=== PATIENT | male | born 1955 | race Caucasian/White ===

== ENCOUNTER 2019-02-05 04:53 | Inpatient (IN) ==
--- NOTE | 2019-01-06 20:04 | PAT Medication Instructions ---
Medication Instructions Date of Service January 06, 2019 Home Medications pantoprazole 40 mg PO QAM Take morning of surgery With a small sip of water, OTHERWISE NOTHING TO EAT OR DRINK AFTER MIDNIGHT: pantoprazole 40 mg PO QAM Other Notes If you have any questions please call us at [phone] or [phone] or [phone] or [phone]
--- NOTE | 2019-01-07 11:29 | Anesthesiology Consultation ---
Date of Service January 07, 2019 Assessment & Plan (1) Encounter for pre-operative examination: Chart Review Chart Review: Acceptable Risk for Surgery and Patient seen in Pre Admission Testing Consults Requested none Teaching & Discussion Pre-Anesthesia Teaching/Discussion Notes: Instructed NPO after midnight before surgery,except medications with 15 cc of water. Medication instructions provided according to the PAT guidelines. History Surgery Operation Date: 02/05/19 08:50 Proposed Procedures p Left Total Knee Arthroplasty - Naman Medina MD Height/Weight Height: 5 ft 10 in Weight: 109.5 kg Allergies Allergy/AdvReac Type Severity Reaction Status Date / Time No Known Allergies Allergy Verified 01/01/19 11:48 Medications Home Medications Medication Instructions Recorded Confirmed Last Taken pantoprazole 40 mg PO QAM 01/01/19 01/01/19 01/01/19 Past Medical History Medical History GERD (gastroesophageal reflux disease) controlled History of herniated intervertebral disc lumbar (rare LBP with strenuous activity) History of kidney stones Obesity Osteoarthritis Exercise / Class Metabolic Activity III < 4 Walking/Shop/Light housework Past Family History Family History Father Family history of lymphoma Past Surgical History Surgical History History of arthroscopy of left knee History of colonoscopy History of tonsillectomy History of total right knee replacement History of vasectomy Hx of arthroscopy of right knee Past Anesthesia History No Hx of Anesthesia Complications and No Family Hx of Anesthesia Complications History of PONV No Hx of PONV and No Hx of Motion Sickness Social History Smoking Status: Never smoker Do You Dip or Chew Tobacco: No Hx Alcohol Use: Yes Alcohol type: beer alcohol intake frequency: holidays/special occasions only Hx Substance Use: No substance use type: does not use Review of Systems Reflux controlled. Patient denies chest pain, shortness of breath, cough, whe ezing, palpitations. Physical Exam Vital Signs Last Vital Signs Temp 36.6 C 01/07/19 11:26 Pulse 58 L 01/07/19 11:26 Resp 18 01/07/19 11:26 BP 145/88 H 01/07/19 11:26 Pulse Ox 96 01/07/19 11:26 Patient advised to followup with PCP regarding elevated BP. PHYSICAL Full neck and c-spine range of motion. Full TMJ range of motion. TMD 3 finger breaths Mallampati Score 2 Dentition: intact, upper front right implant Lungs: clear throughout to auscultation Cardiac: regular rate and rhythm, no murmurs noted Spine: normal Carotid arteries: negative bruit Extremities: no edema Trimmed garcia Testing Laboratory Results 01/07/19 11:42 01/07/19 11:42 PT 11.4 Seconds (9.0-12.0) 01/07/19 11:42 INR 1.1 (0.9-1.1) 01/07/19 11:42 APTT 25.6 Seconds (21.0-31.0) 01/07/19 11:42 Hemoglobin A1c 6.1 % (4.5-5.6) H 01/07/19 11:42 Urine Color Yellow 01/07/19 Unknown Urine Appearance Clear (Clear) 01/07/19 Unknown Urine pH 5.5 (4.5-7.5) 01/07/19 Unknown Ur Specific [place] 1.022 (1.000-1.030) 01/07/19 Unknown Urine Protein Negative (Negative) 01/07/19 Unknown Urine Glucose (UA) Negative (Negative) 01/07/19 Unknown Urine Ketones Negative (Negative) 01/07/19 Unknown Urine Nitrite Negative (Negative) 01/07/19 Unknown Ur Leukocyte Esterase Negative (Negative) 01/07/19 Unknown Blood Type O Positive 01/07/19 11:42 Antibody Screen NEGATIVE 01/07/19 11:42 Electrocardiogram Date: 01/07/19 Findings: + SB @ (55) Chest X-Ray Date: 01/07/19 XR chest Pre-admission PA/Lat CLINICAL HISTORY: 63 years-old Male presenting with preoperative assessment. TECHNIQUE: PA and lateral views of the chest were obtained. COMPARISON: 01/09/2018. FINDINGS: Cardiomediastinal silhouette normal. Lungs and pleural spaces clear. Degenerative changes of the thoracic spine. Upper abdomen normal. IMPRESSION: 1. No acute cardiopulmonary disease.
--- NOTE | 2019-01-07 12:14 | XRay Report ---
XR chest Pre-admission PA/Lat CLINICAL HISTORY: 63 years-old Male presenting with preoperative assessment. TECHNIQUE: PA and lateral views of the chest were obtained. COMPARISON: 01/09/2018. FINDINGS: Cardiomediastinal silhouette normal. Lungs and pleural spaces clear. Degenerative changes of the thor acic spine. Upper abdomen normal. IMPRESSION: 1. No acute cardiopulmonary disease. Electronically signed by: Iván Aponte M.D. 01/07/2019 12:13 PM
[2019-01-07 12:24] LABS: Basophils # (auto) 0.04 K/uL (0-0.2); Basophils % (auto) 0.9 %; Eosinophils # (auto) 0.09 K/uL (0-0.5); Hematocrit (blood only) 41.3 % (42-52); Hemoglobin 13.5 g/dL (14.0-18.0); Lymphocytes # (auto) 1.01 K/uL (1.2-3.4); Lymphocytes % (auto) 22.9 %; Mean Corpuscular Hemoglobin 30.3 pg (25-34); Mean Corpuscular Hgb Conc 32.7 g/dL (32-36); Mean Corpuscular Volume 92.8 fL (80-100); Mean Platelet Volume 11.6 fL (7.4-10.4); Monocytes # (auto) 0.41 K/uL (0.11-0.59); Monocytes % (auto) 9.3 %; Neutrophils # (auto) 2.87 K/uL (1.4-6.5); Neutrophils % (auto) 64.9 %; Platelet Count 226 K/uL (130-400); RDW Coefficient of Variation 13.5 % (11.5-14.5); Red Blood Count 4.45 M/uL (4.7-6.1); White Blood Count 4.42 K/uL (4.8-10.8)
[2019-01-07 12:28] LABS: Albumin Level 3.7 gm/dl (3.4-5.0); BUN Creatinine Ratio 10.9 (10-20); Calcium 8.9 mg/dl (8.5-10.1); Creatinine Clr Calc Pharmacy 99.9 ml/min; Est GFR (Non-African American) 85.4; Potassium 4.3 mmol/L (3.5-5.1)
[2019-01-07 12:38] LABS: Appearance Urine Clear (Clear); Bilirubin Urine Negative (Negative); Blood Urine Negative (Negative); Color Urine Yellow; Glucose Urine UA Negative (Negative); Ketones Urine Negative (Negative); Leukocyte Esterase Urine Negative (Negative); Nitrite Urine Negative (Negative); Protein Urine Negative (Negative); Specific Gravity Urine 1.022 (1.000-1.030); Urobilinogen Urine Negative (Negative); pH Urine 5.5 (4.5-7.5)
[2019-01-07 12:42] LABS: Estimated Average Glucose 128 mg/dl; Hemoglobin A1C 6.1 % (4.5-5.6)
[2019-01-07 12:43] LABS: INR 1.1 (0.9-1.1); Partial Thromboplastin Ratio 0.9; Partial Thromboplastin Time 25.6 Seconds (21.0-31.0); Prothrombin Time 11.4 Seconds (9.0-12.0)
--- NOTE | 2019-02-04 10:17 | History and Physical Report ---
DATE OF ADMISSION: 02/05/2019 CHIEF COMPLAINT: Chronic left knee pain. HISTORY OF PRESENT ILLNESS: This is a 63-year-old male patient of Dr. Medina'ahsan complaining of chronic left knee pain, longstanding, now progressively getting worse. The patient has failed conservative treatment including intra-articular injections, anti-inflammatories and the use of a cane. The patient has been diagnosed with end-stage osteoarthritis per clinical and radiographic exams. The patient has increased pain with weightbearing activities and his pain does interfere with his activities of daily living. The patient wished to proceed with a left total knee arthroplasty. PAST MEDICAL HISTORY: Osteoarthritis, acid reflux, kidney stones. SOCIAL HISTORY: Nonsmoker, nondrinker. PAST SURGICAL HISTORY: Right knee replacement and dental surgery. FAMILY HISTORY: Noncontributory. REVIEW OF SYSTEMS: Chronic left knee pain and instability. Otherwise, denies any shortness of breath, chest pain, nausea, vomiting or any other joint complaints. FAMILY HISTORY: Noncontributory. MEDICATIONS: Pantoprazole 40 mg daily. ALLERGIES: No known drug allergies. PHYSICAL EXAMINATION: GENERAL: Well-developed, well-nourished 63-year-old male in no acute distress. He is alert and oriented x3 and pleasant. HEENT: Normocephalic, atraumatic. Extraocular motions are intact. Pupils are equal and reactive to light. HEART: Regular rate and rhythm, no murmurs. LUNGS: Clear. ABDOMEN: Soft, nontender, bowel sounds present. EXTREMITIES: Left knee reveals a mild effusion. He has a limited range of motion of negative 5-125. He has a varus deformity with medial joint line tenderness. He has 5/5 strength with pain. NEUROLOGIC: Neurovascularly, he is intact in his left lower extremity. DIAGNOSES: Left knee end-stage osteoarthritis, acid reflux, and a history of kidney stones. PLAN: The patient was advised of his diagnosis. Indications, risks, benefits, postop course have all been reviewed. The patient wished to proceed with a left total knee arthroplasty. Necessary consent forms, preoperative testing and clearances will be obtained.
[2019-02-05] MEDS ORDERED: TRANEXAMIC ACID 1,000 MG **IV Pre-op IV SCH (06:00)
[2019-02-05] MEDS ORDERED: FAMOTIDINE 20 MG TAB PO SCH (06:00)
[2019-02-05] MEDS ORDERED: ROPIVACAINE 0.5% HCL/PF 150 MG, BUPIVACAINE 0.5% MPF 30 ML, EPINEPHrine 30MG/30ML (OR U... INSTIL SCH (06:00)
[2019-02-05] MEDS ORDERED: dexAMETHasone 4 MG TAB PO SCH (06:00)
[2019-02-05] MEDS ORDERED: ACETAMINOPHEN 500 MG TAB PO SCH (06:00)
[2019-02-05] MEDS ORDERED: CEFAZOLIN 2000MG 2,000 MG/15 ML SYR IV SCH (06:00)
[2019-02-05] MEDS ORDERED: METOCLOPRAMIDE HCL 10 MG TABLET PO SCH (06:00)
[2019-02-05] MEDS ORDERED: CeleBREX 200 MG CAP PO SCH (06:00)
[2019-02-05] MEDS ORDERED: GABAPENTIN 600 MG DOSE PO SCH (06:00)
[2019-02-05] MEDS ORDERED: LR 500ML BOLUS, THEN 15ML/HR IV SCH (06:00)
[2019-02-05] MEDS ORDERED: ROPIVACAINE 0.5% 5 MG/ML 30 ML VIAL ONE (06:23)
[2019-02-05] MEDS ORDERED: BUPIVACAINE 0.5 % 5 MG/1 ML PF 10ML VIAL ONE (06:23)
[2019-02-05] MEDS ORDERED: MIDAZOLAM HCL 1 MG/ML 2ML VIAL ONE (06:27)
[2019-02-05] MEDS ORDERED: fentaNYL citrate 100 MCG/2 ML VIAL ONE (06:28)
[2019-02-05] MEDS ORDERED: TRANEXAMIC ACID 1,000 MG **IV Intra-op IV SCH (06:30)
[2019-02-05] MEDS ORDERED: ONDANSETRON INJ 2 MG/ML 2 ML VIAL ONE (06:30)
[2019-02-05] MEDS ORDERED: PROPOFOL IV EMULSION 10 MG/ML 20 ML VIAL IV ONE (06:30)
[2019-02-05] MEDS ORDERED: LIDOCAINE HCL 2% 2 ML VIAL/AMP(20MG/ML) INFIL ONE (06:30)
--- NOTE | 2019-02-05 07:00 | History & Physical Bridge Note ---
Date of Service February 05, 2019 History & Physical Bridge Note I have examined the patient, reviewed the History & Physical and in the interval since the performance of the History & Physical I have noted the following changes of clinical significance: no changes noted
[2019-02-05] MEDS ORDERED: ORTHO JOINT ANESTHETIC ONE (07:04)
[2019-02-05] MEDS ORDERED: BACITRACIN INJ 50,000 UNIT VIAL ONE (07:04)
[2019-02-05] MEDS ORDERED: ATROPINE SULFATE 0.1 MG/ML 10ML SYR IV PRN (07:31)
[2019-02-05] MEDS ORDERED: ePHEDrine sulfate 50 MG/ML AMP IV PRN (07:31)
--- NOTE | 2019-02-05 08:50 | Post Operative Brief Note ---
Immediate Post Op Note v1 Date of Surgery February 05, 2019 Pre & Post Diagnosis Operation Date: 02/05/19 07:00 Pre-Op Diagnosis: Left knee end-stage osteoarthritis Post-Op Diagnosis: Left knee end-stage osteoarthritis I identified the patient and participated in the time-out.: Yes Procedure Operation Date: 02/05/19 07:00 Actual Procedures p Left Total Knee Arthroplasty(Left) - Naman Medina MD Surgeon Naman Medina MD Aviation Operations Specialist Roland HOLDER Estimated Blood Loss 5 Findings Consistent with Post-Op Diagnosis Specimens Bone cuts Drains Hemovac Drain Anesthesia Type MAC Spinal Regional Disposition Accompanied Patient To Recovery: No Disposition: Recovery Room Overlapping Procedure I was present for: the critical portions of procedure.
--- NOTE | 2019-02-05 09:52 | XRay Report ---
XR knee LT 2V routine CLINICAL HISTORY: Surgical Post Op COMPARISON: None. DISCUSSION: Anatomic alignment posttotal left knee arthroplasty. Good contact between prosthetic and underlying bone. Expected soft tissue post surgical changes are present. IMPRESSION: Anatomic alignment posttotal left knee arthroplasty. The above report was generated using voice recognition software. It may contain grammatical, syntax or spelling errors. Electronically signed by: Anderson Calvillo M.D. 02/05/2019 9:51 AM
--- NOTE | 2019-02-05 10:40 | Anesthesiology Progress Note ---
Date of Service February 05, 2019 Anesthesia Post Procedure Vital Signs Vital Signs: Temp Pulse Pulse Resp BP Pulse Ox 02/05/19 10:15 59 L 15 118/86 95 02/05/19 10:05 65 18 123/83 94 02/05/19 09:55 64 15 120/91 96 02/05/19 09:45 36.6 C 66 17 129/86 94 02/05/19 09:35 68 18 131/86 94 02/05/19 09:25 75 18 141/85 H 96 02/05/19 09:15 36.3 C L 85 16 130/85 99 02/05/19 05:46 36.6 C 58 L 18 147/84 H 97 Pain Intensity Left Knee: Pain Intensity: 3 Transfer of Care Handoff Completed per policy Notes Mental Status: alert / awake / arousable and participated in evaluation Patient Amnestic to Procedure: Yes Nausea / Vomiting: adequately controlled Pain: adequately controlled Airway Patency, RR, SpO2: stable & adequate BP & HR: stable & adequate Hydration State: stable & adequate Neuraxial Anesthesia: was administered and sensory block is resolving Anesthetic Complications: no major complications apparent
[2019-02-05] MEDS ORDERED: bisacodyL 10 MG SUPP PR PRN (10:56)
[2019-02-05] MEDS ORDERED: HYDROmorphone INJ 0.5 MG/0.5 ML SYR IV PRN (10:56)
[2019-02-05] MEDS ORDERED: ONDANSETRON INJ 2 MG/ML 2 ML VIAL IV PRN (10:56)
[2019-02-05] MEDS ORDERED: NALOXONE HCL 0.4 MG/1 ML VIAL/CARP IV PRN (10:56)
[2019-02-05] MEDS ORDERED: MAGNESIUM HYDROXIDE SUSP 30 ML UDC PO PRN (10:56)
--- NOTE | 2019-02-05 11:16 | Consultation ---
Date of Consultation February 05, 2019 Assessment & Plan (1) Status post left knee replacement: Post op day# 0 S/P L TKA by Dr Medina EBL#5ml -pain management per ortho -wound management per ortho -PT/OT as appropriate -DVT prophylaxis per ortho - aspirin 81mg BID, SCDs -incentive spirometry -monitor H&H for acute blood loss anemia. Pre-op Hgb: 13.5 (2) GERD (gastroesophageal reflux disease): -Continue PPI DVT Prophylaxis -SCDs and ASA 81 mg BID per ortho Disposition per primary team Follows with Dr Crareon for routine care Pt was seen and care coordinated with Dr Sanchez. See addendum Supervising Physician Co-Signing Physician Notes I have seen and examined the patient and have discussed the case with the provider above. I agree with the assessment and plan as stated. 63 yo M s/p L knee arthoplasty today. Doing well post-operatively. Tolerating PO. Denies pain at this time. Heart and lung exam was unremarkable. Patient is not in any distress. Cont plan as above and per Ortho. Thank you for this consultation. DO Daniel [facility] Hospitalist History of Present Illness Reason for Consultation: Post op medical management Attending Physician: Naman Medina MD History of Present Illness Pt is 63 y/o M with PMH GERD seen in medical consultation for post op medical management s/p L TKA today by Dr Medina. Post op pt reports still having leg numbness and denies any pain currently. Denies nausea, vomiting. Denies fever/chills, diaphoresis, SHANKS, dizziness, CP, SOB, palpitations, cough, sore throat, choking, abdominal pain, extremity edema, rashes, urinary symptoms. Allergies Allergy/AdvReac Type Severity Reaction Status Date / Time No Known Allergies Allergy Verified 02/05/19 05:45 Home Medications Home Medications Medication Instructions Recorded Confirmed Type pantoprazole [Protonix] 40 mg PO QAM 01/01/19 01/01/19 History Patient History Medical History GERD (gastroesophageal reflux disease) (Chronic) controlled Osteoarthritis (Chronic) Obesity (Chronic) History of herniated intervertebral disc (Chronic) lumbar (rare LBP with strenuous activity) History of kidney stones (Chronic) Surgical History History of tonsillectomy (Chronic) History of total right knee replacement (Chronic) Hx of arthroscopy of right knee (Chronic) History of arthroscopy of left knee (Chronic) History of vasectomy (Chronic) History of colonoscopy (Chronic) Family History Father Family history of lymphoma Mother Hypertension Social History Preferred Language: [place] Communication Ability: Effective Barrel Bung Remover And Dumper Required: No Beliefs That Will Affect Care: None marital status: Current Living Situation: Spouse Other Information That Helps Us Care for You: No Feels Safe at Home: Yes Smoking Status: Never smoker Do You Dip or Chew Tobacco: No ; Second Hand Exposure: No ; Hx Alcohol Use: Yes Alcohol type: beer Alcohol Intake Frequency: Rarely Hx Substance Use: No Review of Systems Review of Systems: All systems reviewed & are unremarkable except as noted in HPI & below Physical Exam Physical Exam: General: no distress, WDWN Head: normocephalic, atraumatic Eyes: conjunctiva non-injected, anicteric ENT: normal inspection external ears, nose, mucous membranes moist Neck: supple, trachea midline Lungs: clear, no respiratory distress, no wheezing/rhonchi/rales CV: RRR, no murmur, no pretibial edema Abd: normal BS, soft, non-tender Ext: no calf tenderness; left leg: +ladi wrap and dressing in place, limited wiggling toes at this time, distal pulses palpable Neuro: A&O x 3, no focal deficits noted, normal affect Skin: warm, dry Results & Data Vital Signs (Past 12 Hours) Vital Signs Temp Pulse Pulse Resp BP Pulse Ox 02/05/19 10:15 59 L 15 118/86 95 02/05/19 10:05 65 18 123/83 94 02/05/19 09:55 64 15 120/91 96 02/05/19 09:45 36.6 C 66 17 129/86 94 02/05/19 09:35 68 18 131/86 94 02/05/19 09:25 75 18 141/85 H 96 02/05/19 09:15 36.3 C L 85 16 130/85 99 02/05/19 05:46 36.6 C 58 L 18 147/84 H 97
--- NOTE | 2019-02-05 11:28 | Operative Report ---
Post Operative Report Pre & Post Diagnosis Operation Date: 02/05/19 07:00 Pre-Op Diagnosis: Left knee end-stage osteoarthritis Post-Op Diagnosis: Left knee end-stage osteoarthritis I identified the patient and participated in the time-out.: Yes Procedure Operation Date: 02/05/19 07:00 Actual Procedures p Left Total Knee Arthroplasty(Left) - Naman Medina MD Surgeon Naman Medina MD Skip Hoist Operator Roland HOLDER Estimated Blood Loss 5 Findings Consistent with Post-Op Diagnosis Specimens Bone cuts Drains 2 Hemovac Anesthesia Type MAC Spinal Regional Complications none Disposition Accompanied Patient To Recovery: No Disposition: Recovery Room Indications 63-year-old male with chronic progressive osteoarthritis in his left knee failed conservative management. X-rays demonstrate [id number] medial compartment he also has moderately severe osteoarthritis is patella femoral joint with large osteophytes. Is absent knees had total knee replacement in the past with good success. Description of Procedure Patient taken to the operating room the size under spinal MAC regional anesthesia. Patient was placed supine on the operating table. A pneumatic tourniquet was placed about the left upper thigh. The left lower extremity was prepped and draped in sterile fashion. Knee exam demonstrated 15 degree flexion contracture with flexion 125 degrees varus knee. The leg was elevated exsanguinated with an Esmarch bandage and pneumatic tourniquet was raised to 325 millimeters of mercury. Skin incised sharply in longitudinal fashion. Subcutaneous flaps elevated. Incision was made through the medial retinaculum extending up in the mid third of the quadriceps tendon and down to the medial ti bial tubercle. Intra-articular findings demonstrated medial compartment and patellofemoral osteoarthritis with [id number] in the medial compartment varus knee. The [employer] triathlon total knee arthroplasty system was used. To expose the knee the infrapatellar fat pad was resected. The meniscal remnants and cruciate ligaments were resected. The anterior fat pad over the femur in the area of the anterior flange of the femoral component was resected. Lateral synovial bands release. The femur was exposed. An intramedullary drill hole was made into the canal. A guide deb was placed. Distal femoral cutting guide was adjusted to resect a 5 degree valgus cut with 10 millimeters distal femur resected. The knee was extended and a subperiosteal peel lateral release was performed around the patella. Patella width was measured and width was reproduced using a freehand cut technique and a 39 symmetrical patella component. The 3 drill holes were made and the excess lateral facet was beveled off to prevent any impingement. Attention was taken back to the femur which was exposed with retractors and the femoral sizing guide was pinned in position. The drill holes were placed in 3 of external rotation to match epicondylar axis. Femur sized for a 6 component. The 4-in-1 cutting block was placed and then the anterior posterior and chamfer cuts are made. The tibia was then sublu xed. The external tibial cutting guide was just to make a perpendicular cut to the long axis of the tibia below the most deficient bone loss side. A lamina butadiene converter operator was used and the flexion extension gaps were balanced. All posterior osteophytes removed. All meniscal remnants were resected. The tibia exposed and the trial tibial component size 6 was externally rotated in line with the tibial tubercle and pinned in position. The drill and punch for stem was used. The notch cutting device was centered appropriately and the femoral notch cut was made. The femoral trial was inserted. Trial tibial inserts were placed and size 11 gave balanced ligaments through flexion and extension. Patella tracking was assessed. The patella tracked central. The trial components were then removed and the orthomix anesthetic cocktail was injected per protocol. The knee was then copiously irrigated with pulsatile lavage antibiotic solution. Final components were then cemented with Simplex cement. Final components were triathlon posterior stabilized left size 6 femoral component size 6 universal tibial baseplate, size 611 mm thick posterior stabilized X3 polyethylene tibial bearing insert, X3 polyethylene triathlon symmetrical patella 39 mm x 11 mm. While the cement cured the Betadine soak was used per protocol. After cement cured further pulsatile lavage irrigation performed and 2 Hemovac drains were brought out laterally. The quadriceps tendon and medial retinaculum were closed with figure of 8 #1 Vicryl sutures. The knee was taken through full range of motion and the repair was secure. The subcutaneous tissues were closed with 2-0 Vicryl sutures. Skin was closed with dyana. Sterile dressings were applied. Patient procedure well. Roland HOLDER was my physician medical staff assistant who assisted in patient positioning prepping and draping,leg positioning ,soft tissue retraction and instrument management and participated in the closing and will participate in postoperative care of the patient. The patient tolerated the procedure well. I attest to the content of the Intraoperative Record and any orders documented therein. Any exceptions are noted below.
[2019-02-05] MEDS: CEFAZOLIN 2000MG 2,000 MG/15 ML SYR IV SCH ×2 (14:06→22:23)
[2019-02-05] MEDS: ACETAMINOPHEN 500 MG TAB PO SCH ×2 (14:06→20:50)
[2019-02-05] MEDS: SODIUM CHLORIDE 0.9% 1000ML 1,000 ML IV SCH (14:06)
[2019-02-05] MEDS: SENNA 8.6 MG TAB PO SCH (20:49)
[2019-02-05] MEDS: DOCUSATE SODIUM 100 MG CAP PO SCH (20:49)
[2019-02-05] MEDS: ASPIRIN 81 MG ECTAB PO SCH (20:50)
[2019-02-06] MEDS: SODIUM CHLORIDE 0.9% 1000ML 1,000 ML IV SCH (00:27)
[2019-02-06 05:31] LABS: Hematocrit (blood only) 35.1 % (42-52); Hemoglobin 11.6 g/dL (14.0-18.0); Mean Corpuscular Hemoglobin 30.8 pg (25-34); Mean Corpuscular Volume 93.1 fL (80-100); Mean Platelet Volume 11.2 fL (7.4-10.4); Platelet Count 206 K/uL (130-400); RDW Coefficient of Variation 13.3 % (11.5-14.5); RDW Standard Deviation 45.6 fL (36.4-46.3); Red Blood Count 3.77 M/uL (4.7-6.1); White Blood Count 13.59 K/uL (4.8-10.8)
[2019-02-06] MEDS: ACETAMINOPHEN 500 MG TAB PO SCH ×3 (05:50→21:06)
[2019-02-06 05:58] LABS: BUN Creatinine Ratio 18.3 (10-20); Calcium 8.1 mg/dl (8.5-10.1); Creatinine Clr Calc Pharmacy 107.6 ml/min; Est GFR (African American) 106.7; Est GFR (Non-African American) 92.1; Potassium 4.3 mmol/L (3.5-5.1)
[2019-02-06] MEDS: PANTOprazole 40 MG TAB PO SCH (07:07)
--- NOTE | 2019-02-06 07:18 | Orthopedic Progress Note ---
Date of Service February 06, 2019 Assessment & Plan (1) Status post left knee replacement: Postop day 1 status post left total knee arthroplasty PT and OT protocols. Weightbearing as tolerated. Continue DVT prophylaxis and pain management as written DC planning-home health services when discharged. Subjective Patient lying in bed. Awake and alert. No complaints this morning. Pain controlled. Denies shortness of breath, chest pain, lightheadedness. Physical Exam Physical Exam: Dressings are clean, dry, and intact. Calves are soft and non tender. Toes are mobile. Neurovascular is intact. Hemovac drainage was 150 mL's from the previous shift Results & Data Vital Signs (Past 12 Hours) Vital Signs Temp Pulse Resp BP Pulse Ox 02/06/19 04:10 36.7 C 56 L 16 106/62 96 02/05/19 23:06 36.9 C 61 16 90/46 L 93 Laboratory Results Laboratory Results WBC 13.59 K/uL (4.8-10.8) H 02/06/19 04:58 RBC 3.77 M/uL (4.7-6.1) L 02/06/19 04:58 Hgb 11.6 g/dL (14.0-18.0) L 02/06/19 04:58 Hct 35.1 % (42-52) L 02/06/19 04:58 MCV 93.1 fL (80-100) 02/06/19 04:58 MCH 30.8 pg (25-34) 02/06/19 04:58 MCHC 33.0 g/dL (32-36) 02/06/19 04:58 RDW Std Deviation 45.6 fL (36.4-46.3) 02/06/19 04:58 RDW Coeff of [place] 13.3 % (11.5-14.5) 02/06/19 04:58 Plt Count 206 K/uL (130-400) 02/06/19 04:58 MPV 11.2 fL (7.4-10.4) H 02/06/19 04:58 Immature Gran % (Auto) 0.0 % 01/07/19 11:42 Neut % (Auto) 64.9 % 01/07/19 11:42 Lymph % (Auto) 22.9 % 01/07/19 11:42 [place] % (Auto) 9.3 % 01/07/19 11:42 Eos % (Auto) 2.0 % 01/07/19 11:42 Baso % (Auto) 0.9 % 01/07/19 11:42 Immature Gran # (Auto) 0.00 K/uL (0.00-0.02) 01/07/19 11:42 Neut # (Auto) 2.87 K/uL (1.4-6.5) 01/07/19 11:42 Lymph # (Auto) 1.01 K/uL (1.2-3.4) L 01/07/19 11:42 [place] # (Auto) 0.41 K/uL (0.11-0.59) 01/07/19 11:42 Eos # (Auto) 0.09 K/uL (0-0.5) 01/07/19 11:42 Baso # (Auto) 0.04 K/uL (0-0.2) 01/07/19 11:42 PT 11.4 Seconds (9.0-12.0) 01/07/19 11:42 INR 1.1 (0.9-1.1) 01/07/19 11:42 APTT 25.6 Seconds (21.0-31.0) 01/07/19 11:42 PTT Ratio 0.9 01/07/19 11:42 Sodium 140 mmol/L (136-145) 02/06/19 04:58 Potassium 4.3 mmol/L (3.5-5.1) 02/06/19 04:58 Chloride 110 mmol/L (98-107) H 02/06/19 04:58 Carbon Dioxide 27 mmol/L (21-32) 02/06/19 04:58 Anion Gap 3.0 (3-11) 02/06/19 04:58 BUN 16 mg/dl (7-18) 02/06/19 04:58 Creatinine 0.88 mg/dl (0.6-1.4) 02/06/19 04:58 Est Cr Clr Drug Dosing 107.6 ml/min 02/06/19 04:58 Est GFR ( Amer) 106.7 02/06/19 04:58 Est GFR (Non-Af Amer) 92.1 02/06/19 04:58 BUN/Creatinine Ratio 18.3 (10-20) 02/06/19 04:58 Glucose 120 mg/dl (70-99) H 02/06/19 04:58 Estimat Average Glucose 128 mg/dl 01/07/19 11:42 Hemoglobin A1c 6.1 % (4.5-5.6) H 01/07/19 11:42 Calcium 8.1 mg/dl (8.5-10.1) L 02/06/19 04:58 Albumin 3.7 gm/dl (3.4-5.0) 01/07/19 11:42 Urine Color Yellow 01/07/19 Unknown Urine Appearance Clear (Clear) 01/07/19 Unknown Urine pH 5.5 (4.5-7.5) 01/07/19 Unknown Ur Specific [place] 1.022 (1.000-1.030) 01/07/19 Unknown Urine Protein Negative (Negative) 01/07/19 Unknown Urine Glucose (UA) Negative (Negative) 01/07/19 Unknown Urine Ketones Negative (Negative) 01/07/19 Unknown Urine Blood Negative (Negative) 01/07/19 Unknown Urine Nitrite Negative (Negative) 01/07/19 Unknown Urine Bilirubin Negative (Negative) 01/07/19 Unknown Urine Urobilinogen Negative (Negative) 01/07/19 Unknown Ur Leukocyte Esterase Negative (Negative) 01/07/19 Unknown Blood Type O Positive 01/07/19 11:42 Antibody Screen NEGATIVE 01/07/19 11:42
[2019-02-06] MEDS: ASPIRIN 81 MG ECTAB PO SCH ×2 (08:06→21:06)
[2019-02-06] MEDS: DOCUSATE SODIUM 100 MG CAP PO SCH ×2 (08:06→21:06)
[2019-02-06] MEDS: MULTIVITAMIN TAB PO SCH (08:06)
--- NOTE | 2019-02-06 08:08 | Anesthesiology Progress Note ---
Date of Service February 06, 2019 Anesthesia Post Procedure Vital Signs Vital Signs: Temp Pulse Pulse Resp BP BP Pulse Ox 02/06/19 07:12 36.5 C 61 16 131/79 95 02/06/19 04:10 36.7 C 56 L 16 106/62 96 02/05/19 23:06 36.9 C 61 16 90/46 L 93 02/05/19 15:06 36.6 C 67 16 113/70 93 02/05/19 13:42 36.5 C 55 L 16 129/78 94 02/05/19 12:56 62 16 129/80 97 02/05/19 11:41 36.5 C 58 L 16 123/74 92 02/05/19 11:10 36.5 C 59 L 16 126/83 93 02/05/19 10:40 36.6 C 62 16 126/81 94 02/05/19 10:15 59 L 15 118/86 95 02/05/19 10:05 65 18 123/83 94 02/05/19 09:55 64 15 120/91 96 02/05/19 09:45 36.6 C 66 17 129/86 94 02/05/19 09:35 68 18 131/86 94 02/05/19 09:25 75 18 141/85 H 96 02/05/19 09:15 36.3 C L 85 16 130/85 99 Pain Intensity Left Knee: Pain Intensity: 0 Notes Mental Status: alert / awake / arousable and participated in evaluation Patient Amnestic to Procedure: Yes Nausea / Vomiting: adequately controlled Pain: adequately controlled Airway Patency, RR, SpO2: stable & adequate BP & HR: stable & adequate Hydration State: stable & adequate Neuraxial Anesthesia: was administered and sensory block resolved Anesthetic Complications: no major complications apparent
--- NOTE | 2019-02-06 08:41 | Hospitalist Progress Note ---
Date of Service February 06, 2019 Assessment & Plan (1) Status post left knee replacement: Post op day# 1 S/P L TKA by Dr Adam RODRIGUEZ#5ml Total drain output #735ml -Pain management per ortho -Wound management per ortho -PT/OT as appropriate -DVT prophylaxis per ortho - aspirin 81mg BID, SCDs -Incentive spirometry -Hb.6 from Hgb: 13.5 pre-op.likely dilutional/ and post-surgical, Continue monitoring H&H (2) GERD (gastroesophageal reflux disease): -Continue PPI DVT Prophylaxis -SCDs and ASA 81 mg BID per ortho Disposition per primary team Follows with Dr Carreon for routine care Pt was seen and care coordinated with Dr. Mcclure. See addendum Supervising Physician Co-Signing Physician Notes I have seen and examined the patient and have discussed the case with the provider above. I agree with the assessment and plan as stated. 63 y/o male w/no sign. PMH now s/p L knee arthroplasty, post-op day #1. Pt is doing well, in no acute distress. Hgb down to 11 likely dilutional and post-surg., however pt has no symptoms of anemia, such as lightheadedness, chest pain, shortness of breath. Pain seems to be well controlled and pt participates w/ PT. He is tolerating PO. Cardiopulmonary exam unremarkable. Cont. plan as above and per Ortho. Thank you for this consultation. Subjective Pt seen and examined sitting up in bedside chair. Reports doing well post op. Pain is well controlled. Was up to bathroom today and did well with that. Eating and drinking well. Denies nausea or vomiting. Had BM this am. Denies fever/chills, SHANKS, dizziness, syncope, vision changes, neck pain, CP, SOB, palpitations, cough, sore throat, abdominal pain, paresthesias, weakness, extremity edema, rashes, urinary symptoms. Review of Systems Review of Systems: All systems reviewed & are unremarkable except as noted in HPI & below Constitutional: no fever, no chills and no fatigue Respiratory: no cough and no dyspnea Cardiovascular: no chest pain and no palpitations Gastrointestinal: no abdominal pain, no nausea and no vomiting Physical Exam Physical Exam: General: no distress, WDWN Head: normocephalic, atraumatic Eyes: conjunctiva non-injected, anicteric ENT: normal inspection external ears, nose, mucous membranes moist Neck: supple, trachea midline Lungs: clear, no respiratory distress, no wheezing/rhonchi/rales CV: RRR, no murmur, no significant edema Abd: normal BS, soft, non-tender Ext: LLE: +ladi wrap and drain with serosanguineous drainage, no calf tenderness; bilateral pedal pushes and pulls intact, distal pulses intact Neuro: A&O x 3, no focal deficits noted, normal affect Skin: warm, dry Results & Data Vital Signs (Past 12 Hours) Vital Signs Temp Pulse Resp BP BP Pulse Ox 02/06/19 07:12 36.5 C 61 16 131/79 95 02/06/19 04:10 36.7 C 56 L 16 106/62 96 02/05/19 23:06 36.9 C 61 16 90/46 L 93 Laboratory Results Short CBC 02/06/19 Range/Units 04:58 WBC 13.59 H (4.8-10.8) K/uL Hgb 11.6 L (14.0-18.0) g/dL Hct 35.1 L (42-52) % Plt Count 206 (130-400) K/uL BMP 02/06/19 04:58 Sodium 140 Potassium 4.3 Chloride 110 H Carbon Dioxide 27 BUN 16 Creatinine 0.88 Glucose 120 H Calcium 8.1 L Medications Administered Current Inpatient Medications Acetaminophen (Tylenol) 1,000 mg PO Q8 SHASHI Stop: 03/07/19 13:59 Last Admin: 02/06/19 13:48 Dose: 1,000 mg Documented by: Aspirin (Ecotrin Ectab) 81 mg PO BID SHASIH Stop: 03/07/19 20:59 Last Admin: 02/06/19 08:06 Dose: 81 mg Documented by: Bisacodyl (Dulcolax) 10 mg MI DAILY PRN PRN Reason: Constipation Stop: 03/07/19 10:55 Docusate Sodium (Colace) 100 mg PO BID SHASHI Stop: 03/07/19 20:59 Last Admin: 02/06/19 08:06 Dose: 100 mg Documented by: Hydromorphone HCl (Dilaudid) 0.5 mg IV Q4H PRN PRN Reason: Pain Stop: 02/19/19 10:55 Magnesium Hydroxide (Milk Of Magnesia) 30 ml PO Q6H PRN PRN Reason: Constipation Stop: 03/07/19 10:55 Multivitamins (Multivitamin Tab) 1 tab PO [facility] Stop: 03/08/19 08:59 Last Admin: 02/06/19 08:06 Dose: 1 tab Documented by: Naloxone HCl (Narcan) 0.1 mg IV Q5M PRN PRN Reason: Oversedation/Resp Depression Stop: 03/07/19 10:55 Ondansetron HCl (Zofran) 4 mg IV Q6H PRN PRN Reason: Nausea And Vomiting Stop: 03/07/19 10:55 Oxycodone HCl (Roxicodone Immediate Rel) 5 - 10 mg PO Q4H PRN PRN Reason: Pain Stop: 02/19/19 10:55 Pantoprazole Sodium (Protonix) 40 mg PO [facility] Stop: 03/08/19 08:59 Last Admin: 02/06/19 07:07 Dose: 40 mg Documented by: Sennosides (Senokot) 17.2 mg PO [facility] Stop: 03/07/19 20:59 Last Admin: 02/05/19 20:49 Dose: 17.2 mg Documented by:
[2019-02-06] MEDS: SENNA 8.6 MG TAB PO SCH (21:05)
[2019-02-06] MEDS: OXYCODONE HCL IR 5 MG TAB (IMMEDIATE RELEASE) PO PRN (21:06)
[2019-02-07 05:25] LABS: Hematocrit (blood only) 32.4 % (42-52); Hemoglobin 11.1 g/dL (14.0-18.0); Mean Corpuscular Hemoglobin 31.4 pg (25-34); Mean Corpuscular Hgb Conc 34.3 g/dL (32-36); Mean Corpuscular Volume 91.5 fL (80-100); Mean Platelet Volume 10.7 fL (7.4-10.4); Platelet Count 167 K/uL (130-400); RDW Coefficient of Variation 13.5 % (11.5-14.5); Red Blood Count 3.54 M/uL (4.7-6.1); White Blood Count 7.27 K/uL (4.8-10.8)
[2019-02-07 05:51] LABS: BUN Creatinine Ratio 19.5 (10-20); Calcium 7.7 mg/dl (8.5-10.1); Creatinine Clr Calc Pharmacy 107.6 ml/min; Est GFR (African American) 106.7; Est GFR (Non-African American) 92.1; Potassium 3.7 mmol/L (3.5-5.1)
[2019-02-07] MEDS: ACETAMINOPHEN 500 MG TAB PO SCH (05:59)
[2019-02-07] MEDS: OXYCODONE HCL IR 5 MG TAB (IMMEDIATE RELEASE) PO PRN (06:01)
[2019-02-07] MEDS: ASPIRIN 81 MG ECTAB PO SCH (08:38)
[2019-02-07] MEDS: PANTOprazole 40 MG TAB PO SCH (08:38)
[2019-02-07] MEDS: DOCUSATE SODIUM 100 MG CAP PO SCH (08:38)
[2019-02-07] MEDS: MULTIVITAMIN TAB PO SCH (08:38)
--- NOTE | 2019-02-07 08:41 | Hospitalist Progress Note ---
Date of Service February 07, 2019 Assessment & Plan (1) Status post left knee replacement: Post op day# 2 S/P L TKA by Dr Adam RODRIGUEZ#5ml Total drain output #385ml over past 24 hours -Post op pt doing well -Pain management per ortho -Wound management per ortho -PT/OT as appropriate -DVT prophylaxis per ortho - aspirin 81mg BID, SCDs -Incentive spirometry -Hb.1 stable, was 11.6 yesterday and 13.5 pre-op. Likely dilutional and post-surgical (2) GERD (gastroesophageal reflux disease): -Continue PPI DVT Prophylaxis -SCDs and ASA 81 mg BID per ortho Disposition per primary team Follows with Dr Carreon for routine care Pt was discussed and care coordinated with Dr. Mcclure. See addendum Supervising Physician Co-Signing Physician Notes I have discussed and coordinated the care with the provider above. I agree with the assessment and plan as stated. 63 y/o male w/no sign. PMH now s/p L knee arthroplasty, post-op day #2. Anemia, w/Hgb stable ~ 11 likely dilutional and post-surg., pt seems to be asymptomatic. Cont. plan as above and per Ortho. Thank you for this consultation. Subjective Pt seen and examined sitting up in bed. Still doing well post op and reports pain is well controlled. Eating and drinking well. Denies nausea or vomiting. Having BM's and urinating without difficulty. Denies fever/chills, SHANKS, dizziness, syncope, vision changes, neck pain, CP, SOB, palpitations, cough, sore throat, abdominal pain, paresthesias, weakness, extremity edema, rashes, urinary symptoms. Review of Systems Review of Systems: All systems reviewed & are unremarkable except as noted in HPI & below Physical Exam Physical Exam: General: no distress, WDWN Head: normocephalic, atraumatic Eyes:conjunctiva non-injected, anicteric ENT: normal inspection external ears, nose, mucous membranes moist Neck: supple, trachea midline Lungs: clear, no respiratory distress, no wheezing/rhonchi/rales CV: RRR, no murmur, no pretibial edema Abd: normal BS, soft, non-tender Ext: L leg: +anterior knee with dressing in place is dry and intact, able to flex and extend, no calf tenderness, distal pulses palpable bilaterally Neuro: A&O x 3, no focal deficits noted, normal affect Skin: warm, dry Results & Data Vital Signs (Past 12 Hours) Vital Signs Temp Pulse Resp BP BP Pulse Ox 02/07/19 07:23 36.7 C 60 16 123/82 97 02/07/19 07:13 36.9 C 65 16 106/62 150/86 H 95 02/06/19 23:38 36.9 C 65 16 150/86 H 95 Laboratory Results Short CBC 02/07/19 Range/Units 05:13 WBC 7.27 (4.8-10.8) K/uL Hgb 11.1 L (14.0-18.0) g/dL Hct 32.4 L (42-52) % Plt Count 167 (130-400) K/uL BMP 02/07/19 05:13 Sodium 140 Potassium 3.7 Chloride 109 H Carbon Dioxide 25 BUN 17 Creatinine 0.88 Glucose 91 Calcium 7.7 L
--- NOTE | 2019-02-07 08:43 | Orthopedic Progress Note ---
Date of Service February 07, 2019 Assessment & Plan (1) Status post left knee replacement: Postop day 2 status post left total knee arthroplasty PT and OT protocols. Weightbearing as tolerated. Continue DVT prophylaxis and pain management as written DC planning-home health services when discharged. Plan for discharge to home today. Subjective Patient lying in bed reading the paper. No new complaints. Pain is controlled. Looking forward to going home today. Physical Exam Physical Exam: Silverlon dressing is clean, dry, and intact. Calves are soft nontender. Neurovascular is intact. Toes are mobile. Results & Data Vital Signs (Past 12 Hours) Vital Signs Temp Pulse Resp BP BP Pulse Ox 02/07/19 07:23 36.7 C 60 16 123/82 97 02/07/19 07:13 36.9 C 65 16 106/62 150/86 H 95 02/06/19 23:38 36.9 C 65 16 150/86 H 95 Laboratory Results Laboratory Results WBC 7.27 K/uL (4.8-10.8) 02/07/19 05:13 RBC 3.54 M/uL (4.7-6.1) L 02/07/19 05:13 Hgb 11.1 g/dL (14.0-18.0) L 02/07/19 05:13 Hct 32.4 % (42-52) L 02/07/19 05:13 MCV 91.5 fL (80-100) 02/07/19 05:13 MCH 31.4 pg (25-34) 02/07/19 05:13 MCHC 34.3 g/dL (32-36) 02/07/19 05:13 RDW Std Deviation 45.0 fL (36.4-46.3) 02/07/19 05:13 RDW Coeff of [place] 13.5 % (11.5-14.5) 02/07/19 05:13 Plt Count 167 K/uL (130-400) 02/07/19 05:13 MPV 10.7 fL (7.4-10.4) H 02/07/19 05:13 Immature Gran % (Auto) 0.0 % 01/07/19 11:42 Neut % (Auto) 64.9 % 01/07/19 11:42 Lymph % (Auto) 22.9 % 01/07/19 11:42 [place] % (Auto) 9.3 % 01/07/19 11:42 Eos % (Auto) 2.0 % 01/07/19 11:42 Baso % (Auto) 0.9 % 01/07/19 11:42 Immature Gran # (Auto) 0.00 K/uL (0.00-0.02) 01/07/19 11:42 Neut # (Auto) 2.87 K/uL (1.4-6.5) 01/07/19 11:42 Lymph # (Auto) 1.01 K/uL (1.2-3.4) L 01/07/19 11:42 [place] # (Auto) 0.41 K/uL (0.11-0.59) 01/07/19 11:42 Eos # (Auto) 0.09 K/uL (0-0.5) 01/07/19 11:42 Baso # (Auto) 0.04 K/uL (0-0.2) 01/07/19 11:42 PT 11.4 Seconds (9.0-12.0) 01/07/19 11:42 INR 1.1 (0.9-1.1) 01/07/19 11:42 APTT 25.6 Seconds (21.0-31.0) 01/07/19 11:42 PTT Ratio 0.9 01/07/19 11:42 Sodium 140 mmol/L (136-145) 02/07/19 05:13 Potassium 3.7 mmol/L (3.5-5.1) 02/07/19 05:13 Chloride 109 mmol/L (98-107) H 02/07/19 05:13 Carbon Dioxide 25 mmol/L (21-32) 02/07/19 05:13 Anion Gap 6.0 (3-11) 02/07/19 05:13 BUN 17 mg/dl (7-18) 02/07/19 05:13 Creatinine 0.88 mg/dl (0.6-1.4) 02/07/19 05:13 Est Cr Clr Drug Dosing 107.6 ml/min 02/07/19 05:13 Est GFR ( Amer) 106.7 02/07/19 05:13 Est GFR (Non-Af Amer) 92.1 02/07/19 05:13 BUN/Creatinine Ratio 19.5 (10-20) 02/07/19 05:13 Glucose 91 mg/dl (70-99) 02/07/19 05:13 Estimat Average Glucose 128 mg/dl 01/07/19 11:42 Hemoglobin A1c 6.1 % (4.5-5.6) H 01/07/19 11:42 Calcium 7.7 mg/dl (8.5-10.1) L 02/07/19 05:13 Albumin 3.7 gm/dl (3.4-5.0) 01/07/19 11:42 Urine Color Yellow 01/07/19 Unknown Urine Appearance Clear (Clear) 01/07/19 Unknown Urine pH 5.5 (4.5-7.5) 01/07/19 Unknown Ur Specific [place] 1.022 (1.000-1.030) 01/07/19 Unknown Urine Protein Negative (Negative) 01/07/19 Unknown Urine Glucose (UA) Negative (Negative) 01/07/19 Unknown Urine Ketones Negative (Negative) 01/07/19 Unknown Urine Blood Negative (Negative) 01/07/19 Unknown Urine Nitrite Negative (Negative) 01/07/19 Unknown Urine Bilirubin Negative (Negative) 01/07/19 Unknown Urine Urobilinogen Negative (Negative) 01/07/19 Unknown Ur Leukocyte Esterase Negative (Negative) 01/07/19 Unknown Blood Type O Positive 01/07/19 11:42 Antibody Screen NEGATIVE 01/07/19 11:42
--- NOTE | 2019-02-12 22:22 | Discharge Summary ---
DISCHARGE DIAGNOSIS: Degenerative joint disease, left knee. SECONDARY DIAGNOSES: Gastroesophageal reflux disease, renal calculi. CONSULTS: Sheyla Jennings PA-C, Oralia Sanchez DO COMPLICATIONS: None. PROCEDURES: Left total knee arthroplasty performed by Dr. Medina on 02/05/2019. BRIEF HISTORY: As dictated in the history and physical. HOSPITAL SUMMARY: The patient was admitted on the above-noted date and had the above-noted surgery performed, which he tolerated well. On the first postoperative day, the patient was lying in bed, awake and alert, no complaints that morning. Pain was controlled. Denied shortness of breath, chest pain or lightheadedness. Dressings clean, dry and intact. Calves were soft, nontender and toes were mobile. Neurovascularly intact. Hemovac drainage was 150 mL from the previous shift. Vital signs were stable and he was afebrile and hemoglobin was 11.6. The patient was started on PT and OT protocols, weightbearing as tolerated. Continue DVT prophylaxis and pain management and planning for home health services when discharged. He was continued on medical management per [facility] Hospitalist service. By his second postoperative day, he had no new complaints, he was reading the paper, pain was controlled, looking forward to going home. Silverlon dressing was clean, dry and intact. Calves were soft, nontender, neurovascularly intact. Toes were mobile. Vital signs were stable. He was afebrile. Hemoglobin was 11.1. He was remaining medically stable as well as orthopedically stable and it was felt he could be discharged to home. For further review, please see chart. LABORATORY AND X-RAY DATA: As per chart. DISCHARGE INSTRUCTIONS: The patient was discharged to home in satisfactory condition with diet being regular. Activity: Weightbearing as tolerated in the left lower extremity. Follow TK instruction sheets and special care instructions as noted. Follow up with Dr. Medina in 2 weeks. The patient is to call for appointment if one has not been made for you. DISCHARGE MEDICATIONS: Acetaminophen 1000 mg p.o. q. 8 hours, aspirin 81 mg p.o. b.i.d., cefadroxil 500 mg p.o. b.i.d., oxycodone 5 mg p.o. q. 4 hours p.r.n., sennosides 17.2 mg p.o. at bedtime and resume taking pantoprazole daily.
== END 2019-02-07 10:19 | disposition home health service (06) | DRG 470 ==
LOC: ASU 04:53 → 3E 09:20